=== PATIENT | female | born 1950 | race Two or more races ===

== ENCOUNTER 2024-06-30 09:27 | Day surgery (SDC) | payer BC ==
[~2024-06-30] VITALS: Ht 162.6 cm; Wt 88.0 kg
[~2024-06-30 09:27] MED LIST: ALBU108A5 IN; APIX5TAB PO; CARB25TA79 PO; GABA-339 PO; LEVO175T4 PO; METO-158 PO
[2024-06-30] MEDS ORDERED: MIDAZOLAM HCL 2MG/2ML 2ml VIAL (1mg/ml) IV ONE (10:00)
[2024-06-30] MEDS ORDERED: LIDOCAINE VISCOUS 2% 15ML UD PO ONE (10:00)
[2024-06-30] MEDS ORDERED: ONDANSETRON HCL 4 MG/2 ML VIAL IV ONE (10:00)
[2024-06-30] MEDS ORDERED: fentaNYL CITRATE 100 MCG/2 ML VL IV ONE (10:00)
== END 2024-06-30 14:15 | disposition home or self-care (01) ==
LOC: CATH 09:27
PROVIDERS: ATTEND Internal Medicine
DX: I48.91 Unspecified atrial fibrillation (principal); I08.1 Rheumatic disorders of both mitral and tricuspid valves; I10 Essential (primary) hypertension; F17.210 Nicotine dependence, cigarettes, uncomplicated; Z79.899 Other long term (current) drug therapy
CPT/HCPCS: 92960; 93312; 93325; J2405; J3010; 93005; 99152